=== PATIENT | male | born 1995 | race Two or more races ===

== ENCOUNTER 2019-12-01 14:22 | Emergency (ER) | payer OTHER ==
[~2019-12-01] VITALS: Ht 172.7 cm; Wt 72.6 kg
[2019-12-01 14:37] VITALS: BP 134/82
[2019-12-01] MEDS ORDERED: IBUPROFEN 800 MG TAB PO ONE (15:15)
== END 2019-12-01 16:14 | disposition home or self-care (01) ==
LOC: ER 14:22
DX: S16.1XXA Strain of muscle, fascia and tendon at neck level, initial encounter (principal); W20.8XXA Other cause of strike by thrown, projected or falling object, initial encounter; Y93.89 Activity, other specified; Y92.89 Other specified places as the place of occurrence of the external cause; Y99.0 Civilian activity done for income or pay
CPT/HCPCS: 72040